=== PATIENT | male | born 2005 | race Caucasian/White ===

== ENCOUNTER 2024-01-11 11:30 | Emergency (ER) | payer BC, SELFPAY ==
[2024-01-11 11:40] VITALS: BP 136/91; PULSE 64; RESP 19; TEMP 36.8; O2SAT 99; BMI 32.7
[2024-01-11 11:50] LABS: Apearance,Urine Clear (Clear); Bilirubin,Urine Negative (Negative); Blood, Urine Negative (Negative); Color,Urine Yellow (Yellow); Glucose,Urine (UA) Negative (Negative); Ketones,Urine Negative (Negative); Protein,Urine Trace (Negative); Specific Gravity, Urine >= 1.030 (1.005-1.030); UTC Leukocyte Esterase,Urine Negative (Negative); UTC Nitrate,Urine Negative (Negative); Urobilinogen,Urine 0.2 EU/dl (0.2)
--- NOTE | 2024-01-11 11:56 | ED_ITS ---
Discharge Plan Disposition Patient Disposition: Home, Self-Care Condition: Good Prescriptions Prescriptions: New cefdinir 300 mg capsule 300 mg PO Q12H 7 Days Qty: 14 0RF methocarbamol 500 mg tablet 500 mg PO TID PRN (Reason: muscle spasm) Qty: 10 0RF etodolac 200 mg capsule 200 mg PO Q8H PRN (Reason: pain) Qty: 12 0RF Referrals Follow up/Referrals: Denise Flood MD [Primary Care Provider] - See instructions Activity Restrictions/Add. Instructions Additional Instructions/Restrictions: Make sure to drink plenty of fluids Your urine culture should be back in the next 3 days make sure to call back to the [facility] for your urine culture results Follow up with your Family Doctor if no improvement or any worsening of symptoms *Etodolac ella 8 hours with meal as needed for pain/inflammation *Not additional anti-inflammatory like Ibuprofen, motrin, aleve, advil with the above amount of Etodolac. You can still take Tylenol every 4 hours as needed if you need something else for pain *Ice 20 minutes every 2 hours for the first 48 hours after the initial injury followed by moist heat every 20 minutes 3-4 times a day to affected area *Muscle relaxer every 8 hours as needed for muscle spasms but remember, it WILL cause drowsiness You cannot take it and work, drive, operate machinery or care for small children. *Keep this area active, no movement leads to more stiffness, However take it easy and avoid heavy lifting pushing or pulling *Follow up with you family doctor if no improvement for further treatment Clinical Impressions Clinical Impression: Low back pain Qualifiers: Chronicity: unspecified Back pain laterality: right Sciatica presence: without sciatica Qualified Code(s): M54.50 - Low back pain, unspecified Instructions Patient Instructions: DI for Low Back Pain, DI for Urinary Tract Infection (UTI) Discharge ED Provider: Estelle Jesus [facility] [place] General Stated complaint: right side pain Mode of Arrival: Ambulatory Source of Information: Patient Limitations: No Limitations Time Seen by Provider: 01/11/24 11:56 Description of Symptoms (Recalled from Triage Doc. by RN): PATIENT C/O PAIN TO RIGHT FLANK AREA THAT STARTED A FEW DAYS AGO BUT BECAME WORSE LAST NIGHT. PATIENT DENIES NAUSEA, VOMITING AND DIARRHEA. 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 and was having pain on his right side of back that did not move or radiate and got worse as the night went on States when he got home he took a hot shower and laid down and it got better States he is not hurting right now but has a hx of VUR and worried he may have a UTI Denies N/V/D denies fever denies abdominal pain and denies loss of control of bowel or bladder Related Data Previous Rx's Medication Instructions Recorded cefdinir 300 mg capsule 300 mg PO Q12H 7 days #14 caps 01/11/24 etodolac 200 mg capsule 200 mg PO Q8H PRN pain #12 caps 01/11/24 methocarbamol 500 mg tablet 500 mg PO TID PRN muscle spasm #10 01/11/24 tabs Allergies Allergy/AdvReac Type Severity Reaction Status Date / Time No Known Allergies Allergy Verified 09/27/23 13:41 Worker's Comp Is this a Worker's Comp case?: No [facility] Disclaimer: The information contained in this section may have been updated after the patient was seen, as this information can be updated by other users. Medical History Abnormal ECG Allergies Anxiety Chest pain Dizziness Dyspnea History of COVID-19 Pericarditis Sinus headache Syncope Urinary tract infection VUR (vesicoureteric reflux) Family History Other Diabetes Social History Smoking Status: Current every day smoker tobacco type: e-cigarettes alcohol intake: never substance use type: marijuana current occupational status: employed Travel in the last 8 weeks: None household members: family housing: house ROS Obtained: Yes All systems reviewed & no additional complaints except as documented and Yes Systems reviewed as appropriate & no additional complaints except as documented Constitutional Constitutional: Reports system reviewed and no additional complaints, except as documented, Reports as per HPI, Denies chills and Denies fever(s) ENT Ears, Nose, Mouth, and Throat: Reports system reviewed and no additional complaints, except as documented and Reports as per HPI Cardiovascular Cardiovascular: Reports system reviewed and no additional complaints, except as documented and Reports as per HPI Respiratory Respiratory: Reports system reviewed and no additional complaints, except as documented and Reports as per HPI Gastrointestinal Gastrointestingal: Reports system reviewed and no additional complaints, except as documented and as per HPI; Denies abdominal pain, belching, constipation, cramping, diarrhea, nausea or vomiting Genitourinary Male Genitourinary: Reports system reviewed and no additional complaints, except as documented, Reports as per HPI, Denies genital pain, Denies hematuria, Denies testicular pain, Denies urinary frequency, Denies urinary hesitancy and Denies urinary urgency Musculoskeletal Musculoskeletal: Reports system reviewed and no additional complaints, except as documented, Reports as per HPI and Reports back pain (right flank area) Physical Exam General General appearance: alert and in no apparent distress Respiratory Respiratory exam: Present normal lung sounds bilaterally; Absent respiratory distress or wheezes Cardiovascular Cardiovascular exam: Present regular rate, normal rhythm and normal heart sounds Abdominal Exam Abdominal exam: Present soft and normal bowel sounds; Absent distention or tenderness Back Exam Back 1 view image: 2 1. reports pain for last couple of days, better today, mild at this time Denies radiation of pain, no bruising noted Denies known injury Denies loss of control of bowel or bladder Neurological Exam Neurological exam: Present alert, oriented X3 and normal gait Medical Decision Making Krish Inquiry Pt receiving controlled substance: No Krish was queried for this patient: No Vital Signs: 01/11/24 11:40 Temperature 98.2 F Temperature Source Oral Pulse Rate [Left Brachial] 64 Respiratory Rate 19 Blood Pressure [Left Arm] 136/91 H Blood Pressure Mean [Left Arm] 106 Blood Pressure Source [Left Arm] Automatic Cuff Blood Pressure Position [Left Arm] Sitting 02 Sat by Pulse Oximetry 99 Oxygen Delivery Method Room Air Lab Data Lab results reviewed: Yes I reviewed the patient's lab results. Lab Results 01/11/24 11:41: Urine Color Yellow, Urine Appearance Clear, Urine pH 6.0, Ur Specific Russell >= 1.030, Urine Protein Trace, Urine Glucose (UA) Negative, Urine Ketones Negative, Urine Blood Negative, Urine Nitrate Negative, Urine Bilirubin Negative, Urine Urobilinogen 0.2, Ur Leukocyte Esterase Negative Medical Decision Narrative: Discussed with patient and he states he does have hx of low back pain at times, discussed treatment and testing options including but not limited too Urine culture, transfer to the ED or Follow up with PCP patient elected to try muscle relaxers and pain medication to see if htat helps since his pain did improve after hot shower suspect muscular and denies abdominal pain, denies radiation of pain and UA negative for blood denies hx of kidney stone reports hx of UTI with initial UA being negative and infection found in Culture, will prescribe Cefdnir 300mg BID x 7 days and try low dose muscle relaxer and etodolac and patient was given strict return precautions and follow up with PCP for further testing and evaluation and he agreed Call back to [facility] on Monday to see if urine culture back and results Medications was discussed with pharmacy
[2024-01-11 12:18] VITALS: BP 136/91; PULSE 64; RESP 19; TEMP 36.8; O2SAT 99
== END 2024-01-11 12:21 | disposition home or self-care (01) ==
PROVIDERS: Emergency Provider Nurse Practitioner; PCP Family Medicine
DX: M54.59 Other low back pain (principal); B96.89 Other specified bacterial agents as the cause of diseases classified elsewhere; F17.290 Nicotine dependence, other tobacco product, uncomplicated
CPT/HCPCS: 81003; 87086; 99212; 99214; G0463